=== PATIENT | male | born 1985 | race Caucasian/White ===

== ENCOUNTER 2017-10-10 17:27 | Emergency (ER) | payer OTHER, SELFPAY ==
[~2017-10-10] VITALS: Ht 170.2 cm; Wt 90.9 kg
[~2017-10-10 17:27] MED LIST: depakote PO; phenytoin PO
[2017-10-10] MEDS ORDERED: LEVE500T53 PO (17:40)
[2017-10-10] MEDS ORDERED: KETOROLAC TROMETHAMINE 60 MG/2 ML VIAL IM ONE (19:45)
[2017-10-10] MEDS ORDERED: DONNATAL/LIDOCAINE/MAALOX 55 ML BOTTLE PO ONE (20:00)
[2017-10-10 21:46] VITALS: BP 116/70
== END 2017-10-10 21:47 | disposition home or self-care (01) ==
LOC: EMS 17:28
DX: K29.70 Gastritis, unspecified, without bleeding (principal); R07.89 Other chest pain; F17.210 Nicotine dependence, cigarettes, uncomplicated
CPT/HCPCS: 71045; 93005; 96372; 99284; 99406; J1885; Z7610